=== PATIENT | female | born 1940 ===

== ENCOUNTER 2022-12-16 05:40 | Inpatient (IN) | payer OTHER ==
[~2022-12-16] VITALS: Ht 152.4 cm; Wt 48.5 kg
[~2022-12-16 05:40] MED LIST: AMBIEN5 MG PO; CARVEDILOL6.25 MG; CLONAZEPAM0.5 M1 PO; FENOFIBRIC ACI105 MG PO; JANUMET XR 50-1 EAC1 PO; LEXAPRO20 MG PO; LOSARTAN-HCTZ1 EAC2 PO; LOVAZA1 GM PO; PROTONIX40 MG PO; SYNTHROID88 MCG PO; WELLBUTRIN XL300 MG PO; ZANAFLEX2 M1 PO
[2022-12-17] MEDS ORDERED: FAMOTIDINE40 MG (15:26)
[2022-12-17] MEDS ORDERED: ESCITALOPRAM OX20 MG (15:26)
[2022-12-17] MEDS ORDERED: TIZANIDINE HCL4 MG (15:27)
[2022-12-17] MEDS ORDERED: FENOFIBRIC ACI135 MG (15:27)
[2022-12-17] MEDS ORDERED: GABAPENTIN600 MG (15:27)
[2022-12-17] MEDS ORDERED: OMEGA-3 ACID ETH1 GM (15:27)
== END 2022-12-17 17:44 | disposition home or self-care (01) | DRG 328 ==
LOC: CIR.AMB 05:40 → SURH 07:45 → EDSTATUS 07:45 → O/R 13:17 → SURG 13:34
PROVIDERS: ADMIT Surgery; ATTEND Surgery
PROC: 8E0W4CZ Robotic Assisted Procedure of Trunk Region, Percutaneous Endoscopic Approach (ICD-10-PCS; 2022-12-16)
PROC: 0BQT4ZZ Repair Diaphragm, Percutaneous Endoscopic Approach (ICD-10-PCS; principal; 2022-12-16 07:00)
DX: K44.9 Diaphragmatic hernia without obstruction or gangrene (principal); Z20.822 Contact with and (suspected) exposure to COVID-19
CPT/HCPCS: 43281; S2900